=== PATIENT | male | born 1955 | race Caucasian/White ===

== ENCOUNTER 2017-12-31 21:45 | Emergency (ER) | payer OTHER ==
[~2017-12-31] VITALS: Ht 195.5 cm; Wt 99.8 kg
--- NOTE | ~2017-12-31 | EKG ---
[place], [place] ELECTROCARDIOGRAM REPORT NAME: WILFRED MCELROY UNIT #: [id number] ROOM: DOCTOR: EPIPHANY DRAFT REPORT BIRTHDATE: [birth year] [facility] Test Date: 2018-01-01 Test Time: 00:59:56 Pat Name: WILFRED MCELROY Department: ER Room: 1 Gender: M City Engineer: : [id number] Requested By: HILL FIERRO Order Number: [id number] Reading MD: Carmen Martinez MD Measurements Intervals [place] Rate: 80 P: 52 VA: 190 QRS: 31 QRSD: 97 T: 0 QT: 357 QTc: 412 Interpretive Statements Sinus rhythm Anteroseptal infarct, old Electronically Signed On 01-02-2018 11:09:38 PDT by Carmen Martinez MD CM:EKGRPT:ELECTROCARDIOGRAM REPORT [id number] HILL FIERRO MD EPIPHANY DRAFT REPORT HILL FIERRO MD
[~2017-12-31 21:45] MED LIST: COMTAN200 MG PO; [UNRECOGNIZED DRUG - OTHER] PO
[2017-12-31 23:50] LABS: BASO % 0.4 % (0.0-1.0); EOS # 0.1 10*3/uL (0.0-0.4); EOS % 0.6 % (1.0-4.0); HEMATOCRIT 42.9 % (42.0-52.0); HEMOGLOBIN 14.6 g/dl (14.0-18.0); LYMPH # 0.6 10*3/uL (1.3-4.4); LYMPH % 5.3 % (27.0-41.0); MEAN CELL VOLUME 92.1 fl (80.0-94.0); MEAN CORPUSCULAR HGB 31.3 pg (27.0-31.0); MONO # 0.6 10*3/uL (0.1-1.0); MONO % 5.9 % (3.0-9.0); NEUT # 9.2 10*3/uL (2.3-7.9); NEUT % 87.4 % (47.0-73.0); PLATELET COUNT AUTOMATED 218 10*3/uL (130-400); RED BLOOD COUNT 4.66 10*6/uL (4.50-5.90); RED CELL DISTRI WIDTH 13.5 % (0-14.5); WHITE BLOOD COUNT 10.5 10*3/uL (4.8-10.8)
[2018-01-01 00:04] LABS: INTERNATIONAL NORM RATIO 1.1 (2.0-3.5)
[2018-01-01 00:06] LABS: ALBUMIN 3.7 gm/dl (3.1-4.5); ALKALINE PHOSPHATASE 91 U/L (45-117); BUN 15 mg/dl (7-24); CHLORIDE 107 mmol/L (98-107); CREATININE 1.08 mg/dL (0.70-1.30); POTASSIUM 3.7 mmol/L (3.5-5.1); SGOT/AST 7 IU/L (3-35); SGPT/ALT 8 U/L (12-78); SODIUM 139 mmol/L (136-145); TOTAL PROTEIN 6.5 gm/dL (6.4-8.2)
== END 2018-01-01 02:51 | disposition short-term general hospital (02) ==
LOC: ED 21:45
PROVIDERS: Emergency Medicine Emergency Medical Services
DX: S52.91XA Unspecified fracture of right forearm, initial encounter for closed fracture (principal); S52.201A Unspecified fracture of shaft of right ulna, initial encounter for closed fracture; G20 Parkinson's disease; W01.198A Fall on same level from slipping, tripping and stumbling with subsequent striking against other object, initial encounter; Y93.89 Activity, other specified; Y92.89 Other specified places as the place of occurrence of the external cause; Y99.8 Other external cause status